=== PATIENT | male | born 1975 | race Caucasian/White ===

== ENCOUNTER 2020-07-12 09:13 | Emergency (ER) | payer OTHER ==
[~2020-07-12] VITALS: Ht 165.1 cm; Wt 102.1 kg
[2020-07-12] MEDS ORDERED: AMBIEN5 MG (09:23)
[2020-07-12 10:07] LABS: ABSOLUTE BASOPHILS 0.1 thou/uL (0.0-0.2); ABSOLUTE EOSINOPHILS 0.1 thou/uL (0.0-0.7); ABSOLUTE LYMPHOCYTES 2.4 thou/uL (0.8-5.3); ABSOLUTE MONOCYTES 0.6 thou/uL (0.0-1.2); ABSOLUTE NEUTROPHILS 5.1 thou/uL (1.6-8.1); BASOPHILS 1.2 %; EOSINOPHILS 1.5 %; HEMATOCRIT 44.2 % (42.0-52.0); HEMOGLOBIN 15.1 gm/dL (14.0-18.0); LYMPHOCYTES 28.8 %; MCH 29.3 pg (26.0-34.0); MCHC 34.2 g/dL (28.0-37.0); MCV 85.5 fL (80.0-100.0); MPV 7.9 fl. (7.2-11.1); NUCLEATED RBCS 0 /100WBC; PLATELET COUNT* 223 thou/uL (150-400); POLYS 61.5 %; RBC 5.17 mil/uL (4.50-6.00); RDW-CV 13.5 % (10.5-14.5); WBC 8.3 thou/uL (4.0-11.0)
[2020-07-12 10:18] LABS: CREATININE 1.1 mg/dL (0.6-1.3); POTASSIUM 5.1 mmol/L (3.5-5.1)
[2020-07-12 10:33] LABS: ALBUMIN 3.9 g/dL (3.4-5.0); CK-MB MASS 1.5 ng/mL (<0.5-3.6); TOTAL BILIRUBIN 0.7 mg/dL (<0.1-1.0); TOTAL PROTEIN 7.6 g/dL (6.4-8.2)
[2020-07-12 11:41] LABS: APTT 27.1 Seconds (25.0-31.3)
[2020-07-12 11:42] LABS: INR 0.9
[2020-07-12 12:22] VITALS: BP 136/83
--- NOTE | 2020-07-12 17:06 | EKG ---
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
== END 2020-07-12 12:23 | disposition home or self-care (01) ==
LOC: M.ERS 09:13
PROVIDERS: Family Medicine
DX: R07.89 Other chest pain (principal)